=== PATIENT | male | born 1965 | race Caucasian/White ===

== ENCOUNTER 2024-11-11 06:35 | Emergency (ER) | payer BC, SELFPAY ==
[2024-11-11] VITALS (48 sets, daily range): BP systolic 135–197; BP diastolic 84–119; PULSE 54–76; RESP 11–22; TEMP 36.4; O2SAT 94–98; BMI 30.7
--- NOTE | 2024-11-11 07:19 | CRLHL7_ITS ---
For Patients: As a result of the Century Cures Act, medical imaging exams and procedure reports are released immediately into your electronic medical record. You may view this report before your referring provider. If you have questions, please contact your health care provider. Indication: Chest pain Technique: Chest 2 views Comparison: None Findings/Impression: Cardiovascular and mediastinum: Upper normal heart size with prominent aortic tortuosity. Lungs and pleural spaces: Lungs are clear. No sign of infiltrate or mass. No sign of pleural effusion. No pneumothorax. Bones and soft tissues: No significant findings. Dictated by Alfa Jessu MD @ 11/11/2024 7:55:58 AM (Electronically Signed)
[2024-11-11 07:34] LABS: Basophils Absolute Auto 0.03 K/uL (0.00-0.30); Basophils Percent Auto 0.5 % (0.0-3.0); Eosinophils Absolute Auto 0.19 K/uL (0.00-0.50); Eosinophils Percent Auto 3.3 % (0.0-7.0); Hematocrit 40.8 % (37.0-53.0); Hemoglobin* 14.2 gm/dL (13.5-17.5); Immature Granulocytes Abs Auto 0.01 K/uL (0.00-0.30); Immature Granulocytes Pct Auto 0.2 %; Lymphocytes Percent Auto 16.5 % (20-44); Mean Corpuscular HGB Conc 35 gm/dL (32-36); Mean Corpuscular Hemoglobin 33 pg (26-34); Mean Corpuscular Volume 96 fL (80-100); Monocytes Percent Auto 7.8 % (0.0-11.0); Neutrophils Absolute Auto 4.14 K/uL (1.7-7.0); Neutrophils Percent Auto 71.7 % (42.0-72.0); Platelet Count* 151 K/uL (140-440); RDW Coefficient of Variation % 11.7 % (11.5-15.5); Red Blood Count 4.27 m/uL (4.30-5.90); White Blood Count* 5.77 K/uL (4.50-11.00)
[2024-11-11 07:49] LABS: Slide Review Reflex No
[2024-11-11 07:51] LABS: Chloride* 106 mmol/L (96-114); Sodium* 139 mmol/L (135-149)
[2024-11-11 07:54] LABS: Anion Gap 8 mEq/L (7-15); Blood Urea Nitrogen* 17 mg/dL (7-30); Calcium* 8.9 mg/dL (8.4-10.6); Carbon Dioxide* 25 mmol/L (20-32); Creatinine* 0.8 mg/dL (0.5-1.5); Est. Creatinine Clearance* 109.13; Estimated Glomerular Filt Rate 102 ml/min; Glucose* 98 mg/dL (60-115)
[2024-11-11 08:12] LABS: Troponin I* 0.86 ng/mL (0.01-0.04)
--- OUTSIDE RECORDS SUMMARY | 2024-11-11 08:22 | XMS_ITS | Clinical Summary ---
Author Organization [facility] Address [address] [place] [id number] Care Team Providers Care Management Associate Name Role Phone Osman Ponce MD Primary Care Provider [phone] Codey Carpio MD Unavailable Mj Cook MD Unavailable John Cedillo Unavailable Alessia Gallegos NP Unavailable Allergies Active Allergy Reactions Criticality Noted Date Comments Pollen Extracts 06/26/2010 Medications omeprazole (PRILOSEC) 20 mg capsule Take 1 capsule by mouth once daily before a meal. 0 2 Active omega-3 fatty acids-vitamin E (FISH OIL) 1,000 mg cap 0 3 Active aspirin enteric coated (ECOTRIN) 325 mg tablet Take 1 tablet by mouth once daily with a meal. 0 5 Active rivaroxaban (XARELTO) 20 mg tabletIndication s:Paroxysmal atrial fibrillation (HC),Borderline hypertension Take 1 tablet as needed when you go into Atrial Fibrillation 10 tablet 9 Active fexofenadine (LUI) 60 mg tablet Take 1 tablet by mouth 2 times daily. 0 0 Active polyethylene glycol-electroly te (GOLYTELY) 236-22.74-6.74 -5.86 gram suspensionIndica tions:Encounter for screening colonoscopy Drink 2 liters (half the bottle) the day before colonoscopy and 2 liters (remaining prep) 6 hours prior to colonoscopy appointment. 4000 mL 5 Active amLODIPine (NORVASC) 5 mg tabletIndication s:Primary hypertension Take 1 Tablet (5 mg) by mouth once daily. 90 Tablet 3 5 Active metoprolol succinate (TOPROL XL) 50 mg sustained-releas e tabletIndication s:Paroxysmal atrial fibrillation (HC) Take 1 Tablet (50 mg) by mouth once daily. 90 Tablet 3 5 Active rosuvastatin (CRESTOR) 10 mg tabletIndication s:Hypercholester olemia Take 1 Tablet (10 mg) by mouth once daily. 90 Tablet 3 5 Active tamsulosin 0.4 mg capsuleIndicatio ns:Lower urinary tract symptoms due to benign prostatic hyperplasia Take 1 Capsule (0.4 mg) by mouth once daily after a meal. 90 Capsule 2 5 Active Active Problems Problem Noted Date Diagnosed Date Elevated PSA 07/26/2023 Overview (07/26/2023): July 2023: PSA 4.62; referring to urology. Elevated ALT measurement 06/21/2022 Overview (08/31/2022): June 2022: Minimally high ALT at 54 before starting statin. July 2022: Recheck on statin Rosuvastatin (Crestor) 10mg both AST and ALT are normal. Hypercholesterolemia 05/08/2021 Overview (06/21/2022): Mother had muscle pain and sister had liver damage from statins so we need to be careful. May 2021: starting Rosuvastatin (Crestor) 10mg. Never started it. June 2022: starting Rosuvastatin (Crestor) 10mg. Of note, before stating statin, the ALT was minimally high at 54, normal AST. Adenomatous colon polyp 05/13/2019 Overview (05/13/2019): Colonoscopy 05/2019 polyp, repeat in 5 years Primary hypertension 09/07/2015 Overview (05/05/2020): Was on beta monty for atrial fibrillation. May 2020: added amlodipine. Anticoagulation monitoring, INR range 2-3 2014 GERD (gastroesophageal reflux disease) 2 Overview (08/01/2016): Symptoms started with Aspirin for atrial fibrillation in 2010, continued omeprazole. Trial of taper to H2 Monty September 2012. July 2016: Trying taper again. Atrial fibrillation 06/26/2010 Overview (08/24/2014): Jun 2010: was taking Buhn-Jxk-Ivtzowi decongestants. Spontaneously converted to NSR, started on Aspirin and Metoprolol. Jul 2010: Holter monitor showed NSR with blunted rate, numerous PVCs. See Cardiology follow up consult note Jul 2010: Dr. Carpio. October 2013: atrial fibrillation with RVR, cardioverted at ER. Jun 2014: Atrial fibrillation, cardioversion. July 2014: Pulmonary Vein Isolation procedure done for atrial fibrillation. Pain in limb 10/18/2008 Left foot drop 07/04/2008 Overview (02/12/2011): Starting before 2005. Abnormal EMG Jun 2008: profound peroneal neropathy at the knee. Saw neurology August,. 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 Recommended repeat MRI in 5 years. Considering Tendon Transfer via [facility]. OTITIS EXTERNA 06/25/2005 LYMPHADENOPATHY 07/22/2001 OM, CHRONIC TUBOTYMPANIC SUPPURATIVE 11/25/2000 ALLERGIES 09/10/2000 Acute sinusitis, unspecified Immunizations Immunization Administration Dates Next Due AMB Influenza, IIV3 (Age >=3 years)(Flu Clinic Only) 03/21/2010,03/05/2009,03/21/2008 AMB Influenza, IIV4 PF (=>6 mos Flulaval,Fluzone Fluarix)(Flu Clinic Only) 02/21/2020 COVID-19 VACCINE SPIKEVAX (M ODERNA 50MCG/0.5ML) 12YO+ PFS 03/31/2024 Hepatitis A (Adult) 07/23/2018,01/20/2018 INFLUENZA, IIV3 PF (AGE >= 6 MO) 03/31/2024 Influenza, IIV3 (Age >=3 years) 03/12/2015,03/22,04/11/2005 Influenza, IIV4 02/25/2023,,03/11/2019,2017,03/15/2016 Influenza, IIV4 (=>6mos) MDV 03/03/2017,03/14/20 15 Influenza,CCIIV4 PRESERV FREE 03/14/2022 Pneumococcal Conj 20-valent (Prevnar 20) 07/28/2024 Td (Age >=7 Years) 05/04/2020,01/19/2002 Tdap 01/25/2010 Zoster (Shingrix-RZV, recombinant) 07/23/2018, Family History Medical History Relation Name Comments Heart Disease Father Afib, recurren t, and pacemaker Parkinsonism Father Alzheimer's disease Maternal Grandfather alzheimer Maternal Grandfather Allergies Mother Heart Disease Mother afib intermitt ently Hyperlipidemia Mother Hypertension Mother scleroderma Mother Genetic Other 1 grandfather wit h alzheimers Cancer Other 2 skin/grandparen t Hyperlipidemia Sister 2 Sist problems w liver on statins Relation Name Status Comments Father Alive Maternal Grandfather Mother of Sclerod abigail 2014 at 73 Other 1 Other 2 Sister 1 Alive Sister 2 Social History Tobacco Use Types Packs/Day Years Used Date Smoking Tobacco: Never Smokeless Tobacco: Never Tobacco Cessation:Counseling Given: Yes Alcohol Use Standard Drinks/Week Comments Yes 0 (1 standard drink = 0.6 oz pur e alcohol) 2020: weekends, 12 -15 /week. PHQ-2 Answer Date Recorded PHQ-2 TOTAL SCORE 0 07/28/2024 Social Connections Answer Date Recorded Do you often feel lonely or isolated from those around you? 0 07/27/2024 Financial Resource Strain Answer Date R ecorded Difficulty of Paying Living Expenses 3 07/27/2024 Difficulty of Paying Living Expenses Not on file 07/27/2024 Food Insecurity Answer Date Recorded Do you worry your food will run out before you are able to buy more? 1 07/27/2024 Transportation Needs Answer Date Record ed Does lack of transportation keep you from medica l appointments? 1 07/27/2024 Does lack of transportation keep you from work, meetings or getting things that you need? 1 07/27/2024 Housing Stability Answer Date Recorded What is your housing situation today? 1 07/27/2024 Utilities Answer Date Recorded Do you have trouble paying f or utilities (for example, heat, electricity, water, phone)? 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 Gender Identity Not on file Sexual Orientation Not on file Occupation Industry Job Start Date Job End Date Not on file Not on file Not on file Not on file Obstetrics History Last Filed Vital Signs Vital Sign Reading Time Taken Comments Blood Pressure 123/83 07/28/2024 9:06 AM BAND MACHINE OPERATOR Pulse 67 07/28/2024 9:06 AM BAND MACHINE OPERATOR Temperature 36.6 C (97.8 F) 04/02/2015 8:09 AM BAND MACHINE OPERATOR Respiratory Rate 14 04/04/2019 7:57 AM BAND MACHINE OPERATOR Oxygen Saturation 95% 07/28/2024 9:06 AM BAND MACHINE OPERATOR Inhaled Oxygen Concentration - - Weight 101.7 kg (224 lb 4.8 oz) 07/28/2024 9:06 AM BAND MACHINE OPERATOR Height 182.1 cm (5' 11.69) 07/28/2024 9:[address] Body Mass Index 30.68 07/28/2024 9:06 AM BAND MACHINE OPERATOR Plan of Treatment Scheduled Procedures Name Priority Associated Diagnoses Date/Ti me SURGICAL PROCEDURE (TYPE PROCEDURE DESCRIPTION BELOW) Encounter for screening colonoscopy Health Maintenance Due Date Last Done Comments Hepatitis B series for 19+ (1 of 3 - 19+ 3-dose series) 1984 BMI (ht and wt on same day) for age 18+ 07/28/2025 07/28/2024, 07/24/2023, 05/02/2021, Additional history exists Depression screening for age 12+ 07/28/2025 07/28/2024, 07/26/2023, 07/24/2023, Additional history exists Lipids for age 45-75 07/28/2029 07/28/2024, 07/24/2023, 08/29/2022, Additional history exists Tetanus booster 05/04/2030 05/04/2020, 12/31, 01/19/2002 HIV for age 15-65 07/07/2031 Postponed from 1980 (Patient discretion) Colonoscopy through age 75 08/03/203108/02, 05/11/2019, 05/11/2019 Tdap Completed 01/25/2010 Hepatitis C screening for age 18-79 Completed 11/11/2013 Zoster (shingles) series for age 50+ Completed 07/23/2018, 01/20/2018 COVID-19 vaccine series Completed 03/31/20 24, 03/14/2022, 04/03/2021, Additional history exists Influenza Vaccine Completed 03/31/2024, , 03/14/2022, Additional history exists Pneumococcal series for age 50+ Completed 07/28/2024 Procedures Procedure Name Priority Date/Time Associated Diagnosis Comments SCAN-COLONOSCOPY 08/02/2024 12:0 0 AM BAND MACHINE OPERATOR LIPID PANEL W REFLEX MEASURED LDL Routine 07/28/2024 10:26 AM BAND MACHINE OPERATOR Hypercholesterolemi a ANTI HCV Routine 11/11/2013 1:37 PM CDT Need for hepatitis C screening test from Last 3 Months or Most Recently Relevant to Health Maintenance Results * SCAN-COLONOSCOPY (08/02/2024 12:00 AM BAND MACHINE OPERATOR) us Scanner OTHER Final Result * LIPID PANEL W REFLEX MEASURED LDL (07/28/2024 10:26 AM BAND MACHINE OPERATOR) CHOLESTEROL, TOTAL 155 <200 mg/dL [facility] HDL CHOLESTEROL 53 > OR = 40 mg/dL [facility] TRIGLYCERIDES 81 <150 mg/dL [facility] LDL-CHOLESTEROL 85 mg/dL (calc) [facility] Comment: Reference range: <100 Desirable range <100 mg/dL for primary prevention; <70 mg/dL for patients with CHD or diabetic patients with > or = 2 CHD risk factors. LDL-C is now calculated using the Loan calculation, which is a validated novel method providing better accuracy than the Friedewald equation in the estimation of LDL-C. Mino CORTES et al. DYLAN. 2013;310(19): 1498-8231 (http://education.Bevii.MedeFile International/faq/FVR965) CHOL/HDLC RATIO 2.9 <5.0 (calc) [facility] NON HDL CHOLESTEROL 102 <130 mg/dL (calc) [facility] Comment: For patients with diabetes plus 1 major ASCVD risk factor, treating to a non-HDL-C goal of <100 mg/dL (LDL-C of <70 mg/dL) is considered a therapeutic option. Blood BLOOD SPECIMEN / Unknown 07/28/2024 10:26 AM BAND MACHINE OPERATOR 07/28/2024 10:28 AM BAND MACHINE OPERATOR Osman Ponce MD CHEMISTRY Final Res ult Performing Organization Address [facility]/ZIP Co de Phone Number [employer] [facility] [address] [place] [address], [employer] [facility] [address] [place] [address] * ANTI HCV [78922.2] (11/11/2013 1:37 PM CDT) HEPATITIS C ANTIBODY Non-Reacti ve Non-Reacti ve 11/11/2013 7:52 PM CDT [facility] Blood specimen (specimen) BLOOD SPECIMEN / Unknown Venipuncture / Unknown 11/11/2013 1:37 PM CDT 11/11/2013 1:37 PM CDT Narrative [facility] [employer] [facility] - 11/11/2013 7:52 PM CDT Antibodies to HCV not detected; does not exclude the possibility of exposure to HCV. Osman Ponce MD SEND OUTS Final Res ult [facility] [address] [place] [address], [place] from Last 3 Months or Most Recently Relevant to Health Maintenance Insurance [facility] Advance Directives * Full Code (Latest Code Status on File) Date Activated Date Inactivated Comments 08/21/2014 6:03 AM 08/22/2014 12:17 PM * Full Code Date Activated Date Inactivated Comments 07/18/2014 7:25 AM 07/18/2014 12:36 PM * Full Code Date Activated Date Inactivated Comments 06/26/2010 2:49 PM 06/27/2010 5:03 PM Care Teams Management Associate Relationship Specialty Start Date End Date Osman Ponce MD PCP - General 08/10/08 Codey Carpio MD Consulting Physician Cardiovascular Disease 12/08/13 Mj Cook MD [address] [place] [address] Cardiology - EP Cardiovascular Disease 08/09/14 John Cedillo [address] [address] Dermatology Dermatology 03/29/19 Alessia Gallegos NP [address] [address] Nurse Practitioner Cardiology - Electrophysiology 04/23/20
--- NOTE | 2024-11-11 08:30 | ED.CHESTPAIN ---
HPI - Chest Pain General Chief Complaint: Chest Pain Stated Complaint: Chest pain Time Seen by Provider: 11/11/24 07:35 History of Present Illness HPI narrative: Patient is a 59-year-old gentleman with a distant history of cardiac ablation for atrial fibrillation who has hypertension. He woke approximately 3 hours ago with substernal chest pain. Patient had no nausea vomiting diaphoresis no fevers no chills. She got up and took his normal 325 of aspirin as well as his metoprolol. He went back to bed was not able to sleep. Comes in this morning were EKG shows normal sinus rhythm without acute ST or T-wave changes. His troponin has come back as 0.86. Patient is asymptomatic and feeling well. Related Data Allergies Allergy/AdvReac Type Severity Reaction Status Date / Time No Known Drug Allergies Allergy Verified 11/11/24 06:44 Review of Systems Status of ROS Reports: 10 or more systems reviewed and unremarkable except as noted in History and below Exam Narrative Exam Narrative: EXAM GENERAL: Patient appears comfortable and well. EYES: No scleral icterus. LYMPH: No supraclavicular or cervical lymphadenopathy. SKIN: Visible skin seen during exam normal or with benign process only. EXT: No dependent lower extremity pedal edema. HEART: Regular rate and rhythm with no murmurs, rubs, or gallops. LUNGS: Clear to auscultation bilaterally with no crackles or wheezes. ABD: Soft, non tender, non distended. PSYCH: Good eye contact, speech is not pressured. Const Vital Signs, click to edit/add: Vital Signs - 24 hr 11/11/24 06:41 11/11/24 07:25 11/11/24 07:26 Temperature 97.5 F L Pulse Rate 58 L 56 L Pulse Rate [Right Pulse Oximeter] 76 Respiratory Rate 18 14 12 Blood Pressure 146/94 H Blood Pressure [Right Upper Arm] 177/84 H Pulse Oximetry 97 95 95 Oxygen Delivery Method Room Air 11/11/24 07:29 11/11/24 07:30 11/11/24 07:32 Temperature Pulse Rate 60 61 Pulse Rate [Right Pulse Oximeter] Respiratory Rate 17 16 Blood Pressure 135/90 H Blood Pressure [Right Upper Arm] Pulse Oximetry 94 94 94 Oxygen Delivery Method 11/11/24 07:48 11/11/24 08:00 11/11/24 08:02 Temperature Pulse Rate 62 56 L 57 L Pulse Rate [Right Pulse Oximeter] Respiratory Rate Blood Pressure 149/91 H Blood Pressure [Right Upper Arm] Pulse Oximetry 94 96 94 Oxygen Delivery Method 11/11/24 08:03 11/11/24 08:15 11/11/24 08:45 Temperature Pulse Rate 58 L 54 L 67 Pulse Rate [Right Pulse Oximeter] Respiratory Rate 14 12 13 Blood Pressure Blood Pressure [Right Upper Arm] Pulse Oximetry 94 96 98 Oxygen Delivery Method 11/11/24 09:00 11/11/24 09:03 11/11/24 09:05 Temperature Pulse Rate 63 67 65 Pulse Rate [Right Pulse Oximeter] Respiratory Rate 11 L 14 Blood Pressure 197/119 H 164/111 H Blood Pressure [Right Upper Arm] Pulse Oximetry 96 96 95 Oxygen Delivery Method Course Course ED Course: Patient seen and examined. Troponin is elevated. I have called and spoken to Cardiology at [facility]. Patient will be started on heparin drip and will be transferred for heart catheterization. No further intervention at this time. Vital Signs Vital signs: Initial Vital Signs Respiratory Effort Normal 11/11/24 06:38 Respiratory Depth Normal 11/11/24 06:38 Respiratory Pattern Normal 11/11/24 06:38 Vital Signs Temperature 97.5 F L 11/11/24 06:41 Pulse Rate 76 11/11/24 06:41 Respiratory Rate 18 11/11/24 06:41 Blood Pressure 177/84 H 11/11/24 06:41 Pulse Oximetry 97 11/11/24 06:41 Oxygen Delivery Method Room Air 11/11/24 06:41 Temperature 97.5 F L 11/11/24 06:41 Pulse Rate 65 11/11/24 09:05 Respiratory Rate 14 11/11/24 09:05 Blood Pressure 164/111 H 11/11/24 09:05 Pulse Oximetry 95 11/11/24 09:05 Oxygen Delivery Method Room Air 11/11/24 06:41 Medications Administered Medications: Generic Name Dose Route Start Last Admin Trade Name Freq PRN Reason Stop Dose Admin Heparin Sodium/Dextrose 25,000 unit in 500 mls @ 0 mls/hr 11/11/24 08:30 11/11/24 08:47 Heparin IV 1,000 unit/hr .Q0M YARIEL 20 mls/hr Protocol Administration Per Protocol Discontinued Medications Generic Name Dose Route Start Last Admin Trade Name Freq PRN Reason Stop Dose Admin Heparin Sodium (Porcine) 4,000 unit 11/11/24 08:29 11/11/24 08:46 Heparin 5,000 Unit/0.5 Ml Inj IVP 11/11/24 08:30 4,000 unit ONCE ONE Administration MDM - Chest Pain MDM Narrative Medical decision making narrative: Patient presents with with a 3 hour distant history of chest pain with no pain currently. EKG shows normal sinus rhythm. His troponin is elevated. The remainder of his workup was unremarkable. Patient has taken aspirin beta-solitario this morning. He is asymptomatic. Pulse is 65. Spoke with Cardiology at [facility] and they did recommend heparin drip which was started. Patient is transferred to [facility] with a bed delay. Will continue provide supportive care in the interim. Lab Data Labs: Lab Results 11/11/24 11/11/24 11/11/24 Range/Units 07:25 07:25 07:25 WBC 5.77 Cancelled (4.50-11.00) K/uL RBC 4.27 L Cancelled (4.30-5.90) m/uL Hgb 14.2 (13.5-17.5) gm/dL Hct (37.0-53.0) % MCV (80-100) fL MCH (26-34) pg MCHC (32-36) gm/dL RDW Coeff of Riya (11.5-15.5) % Plt Count (140-440) K/uL Neut % (Auto) (42.0-72.0) % Lymph % (Auto) (20-44) % [place] % (Auto) (0.0-11.0) % Eos % (Auto) (0.0-7.0) % Baso % (Auto) (0.0-3.0) % Neut # (Auto) (1.7-7.0) K/uL Lymph # (Auto) (0.90-2.90) K/uL [place] # (Auto) (0.00-0.90) K/UL Eos # (Auto) (0.00-0.50) K/uL Baso # (Auto) (0.00-0.30) K/uL Abs Immat Gran (auto) (0.00-0.30) K/uL Imm/Tot Granulo (auto) % INR (0.91-1.10) APTT (23-33) Seconds D-Dimer Quant (PE/DVT) (0.00-0.50) ug/ml Sodium (135-149) mmol/L Potassium (3.6-5.1) mmol/L Chloride (96-114) mmol/L Carbon Dioxide (20-32) mmol/L Anion Gap (7-15) mEq/L BUN (7-30) mg/dL Creatinine (0.5-1.5) mg/dL Estimated Creat Clear Estimated GFR ml/min Glucose (60-115) mg/dL Calcium (8.4-10.6) mg/dL Troponin I (0.01-0.04) ng/mL 11/11/24 11/11/24 11/11/24 Range/Units 07:25 07:25 07:25 WBC (4.50-11.00) K/uL RBC (4.30-5.90) m/uL Hgb Cancelled (13.5-17.5) gm/dL Hct 40.8 Cancelled (37.0-53.0) % MCV 96 Cancelled (80-100) fL MCH 33 (26-34) pg MCHC (32-36) gm/dL RDW Coeff of Riya (11.5-15.5) % Plt Count (140-440) K/uL Neut % (Auto) (42.0-72.0) % Lymph % (Auto) (20-44) % [place] % (Auto) (0.0-11.0) % Eos % (Auto) (0.0-7.0) % Baso % (Auto) (0.0-3.0) % Neut # (Auto) (1.7-7.0) K/uL Lymph # (Auto) (0.90-2.90) K/uL [place] # (Auto) (0.00-0.90) K/UL Eos # (Auto) (0.00-0.50) K/uL Baso # (Auto) (0.00-0.30) K/uL Abs Immat Gran (auto) (0.00-0.30) K/uL Imm/Tot Granulo (auto) % INR (0.91-1.10) APTT (23-33) Seconds D-Dimer Quant (PE/DVT) (0.00-0.50) ug/ml Sodium (135-149) mmol/L Potassium (3.6-5.1) mmol/L Chloride (96-114) mmol/L Carbon Dioxide (20-32) mmol/L Anion Gap (7-15) mEq/L BUN (7-30) mg/dL Creatinine (0.5-1.5) mg/dL Estimated Creat Clear Estimated GFR ml/min Glucose (60-115) mg/dL Calcium (8.4-10.6) mg/dL Troponin I (0.01-0.04) ng/mL 11/11/24 11/11/24 11/11/24 Range/Units 07:25 07:25 07:25 WBC (4.50-11.00) K/uL RBC (4.30-5.90) m/uL Hgb (13.5-17.5) gm/dL Hct (37.0-53.0) % MCV (80-100) fL MCH Cancelled (26-34) pg MCHC 35 Cancelled (32-36) gm/dL RDW Coeff of Riya 11.7 (11.5-15.5) % Plt Count 151 Cancelled (140-440) K/uL Neut % (Auto) 71.7 (42.0-72.0) % Lymph % (Auto) 16.5 L (20-44) % [place] % (Auto) 7.8 (0.0-11.0) % Eos % (Auto) 3.3 (0.0-7.0) % Baso % (Auto) 0.5 (0.0-3.0) % Neut # (Auto) 4.14 (1.7-7.0) K/uL Lymph # (Auto) 1.00 (0.90-2.90) K/uL [place] # (Auto) 0.50 (0.00-0.90) K/UL Eos # (Auto) 0.19 (0.00-0.50) K/uL Baso # (Auto) 0.03 (0.00-0.30) K/uL Abs Immat Gran (auto) 0.01 (0.00-0.30) K/uL Imm/Tot Granulo (auto) 0.2 % INR 0.97 (0.91-1.10) APTT 36 H (23-33) Seconds D-Dimer Quant (PE/DVT) 0.20 (0.00-0.50) ug/ml Sodium 139 (135-149) mmol/L Potassium 4.0 (3.6-5.1) mmol/L Chloride 106 (96-114) mmol/L Carbon Dioxide 25 (20-32) mmol/L Anion Gap 8 (7-15) mEq/L BUN 17 (7-30) mg/dL Creatinine 0.8 (0.5-1.5) mg/dL Estimated Creat Clear 109.13 Estimated GFR 102 ml/min Glucose 98 (60-115) mg/dL Calcium 8.9 (8.4-10.6) mg/dL Troponin I 0.86 H* (0.01-0.04) ng/mL Discharge Plan Discharge Clinical Impression: Non-ST elevated myocardial infarction (non-STEMI) Patient Disposition: [facility] Condition: Stable Instructions: Heart Healthy Diet (ED) Activity Level: Other Discharge Diet: Other Stand Alone Forms: [facility] Info Instructions
[2024-11-11] MEDS: HEPARIN 5,000 UNIT/0.5 ML INJ 4000 UNIT IVP (08:46)
[2024-11-11] MEDS: HEPARIN 25,000 UNIT/500 ML BAG 20 UNIT IV (08:47)
[2024-11-11 09:13] LABS: INR 0.97 (0.91-1.10); Partial Thromboplastin Time* 36 Seconds (23-33); Prothrombin Time 13.7 Seconds
== END 2024-11-11 14:38 | disposition short-term general hospital (02) ==
PROVIDERS: Family Medicine; Emergency Provider Internal Medicine; PCP Family Medicine
DX: I21.4 Non-ST elevation (NSTEMI) myocardial infarction (principal); I10 Essential (primary) hypertension
CPT/HCPCS: 36415; 71046; 80048; 84484; 85025; 85027; 85379; 85610; 85730; 93005; 94761; 99284; 99285; J1644

== ENCOUNTER 2024-11-11 14:25 | Outpatient (CLI) | payer BC, SELFPAY ==
--- OUTSIDE RECORDS SUMMARY | 2024-11-18 00:32 | XMS_ITS | Clinical Summary ---
Author Organization [facility] Address [address] [place] [address] Care Team Providers Care Search Engine Optimization Analyst Name Role Phone Osman Ponce MD Primary Care Provider [phone] Codey Carpio MD Unavailable Mj Cook MD Unavailable John Cedillo Unavailable Alessia Gallegos NP Unavailable Allergies Active Allergy Reactions Criticality Noted Date Comments Pollen Extracts 06/26/2010 Medications amLODIPine (NORVASC) 5 mg tabletIndications :Primary hypertension Take 1 Tablet (5 mg) by mouth once daily. 90 Tablet 3 025 Active metoprolol succinate (TOPROL XL) 50 mg sustained-release tabletIndications :Paroxysmal atrial fibrillation (HC) Take 1 Tablet (50 mg) by mouth once daily. 90 Tablet 3 025 Active tamsulosin 0.4 mg capsuleIndication s:Lower urinary tract symptoms due to benign prostatic hyperplasia Take 1 Capsule (0.4 mg) by mouth once daily after a meal. 90 Capsule 2 025 Active aspirin chewable 81 mg chewable tabletIndications :ASCVD (arteriosclerotic cardiovascular disease) Chew 1 Tablet (81 mg) by mouth once daily in the morning. 025 Active ticagrelor 90 mg tabletIndications :ASCVD (arteriosclerotic cardiovascular disease) Take 1 Tablet (90 mg) by mouth two times daily. Take one year uninterrupted. Do not stop unless directed by Cardiology. 60 Tablet 11 5 10:14 AM CDT 025 Active losartan 25 mg tabletIndications :ASCVD (arteriosclerotic cardiovascular disease) Take 1 Tablet (25 mg) by mouth once daily. 30 Tablet 1 5 10:14 AM CDT 025 Active nitroglycerin 0.4 mg sublingual tabletIndications :ASCVD (arteriosclerotic cardiovascular disease) Place 1 Tablet (0.4 mg) under the tongue every 5 minutes if needed for Chest pain 1st choice. Up to 3 tablets in 15 minutes. 25 Tablet 2 5 10:14 AM CDT 025 Active rosuvastatin 20 mg tabletIndications :ASCVD (arteriosclerotic cardiovascular disease) Take 1 Tablet (20 mg) by mouth once daily. 30 Tablet 1 5 10:14 AM CDT 025 Active omeprazole (PRILOSEC) 20 mg capsule Take 1 capsule by mouth once daily before a meal. 0 012 2024 Discontinued (Pharmacist change per medication history (E-cancel not sent)) omega-3 fatty acids-vitamin E (FISH OIL) 1,000 mg cap 0 013 2024 Discontinued (Pharmacist change per medication history (E-cancel not sent)) aspirin enteric coated (ECOTRIN) 325 mg tablet Take 1 tablet by mouth once daily with a meal. 0 015 2024 Discontinued (Pharmacist change per medication history (E-cancel not sent)) rivaroxaban (XARELTO) 20 mg tabletIndications :Paroxysmal atrial fibrillation (HC),Borderline hypertension Take 1 tablet as needed when you go into Atrial Fibrillation 10 tablet 019 2024 Discontinued (Pharmacist change per medication history (E-cancel not sent)) fexofenadine (LUI) 60 mg tablet Take 1 tablet by mouth 2 times daily. 0 020 2024 Discontinued (Pharmacist change per medication history (E-cancel not sent)) polyethylene glycol-electrolyt e (GOLYTELY) 236-22.74-6.74 -5.86 gram suspensionIndicat ions:Encounter for screening colonoscopy Drink 2 liters (half the bottle) the day before colonoscopy and 2 liters (remaining prep) 6 hours prior to colonoscopy appointment. 4000 mL 025 2024 Discontinued (Pharmacist change per medication history (E-cancel not sent)) rosuvastatin (CRESTOR) 10 mg tabletIndications :Hypercholesterol emia Take 1 Tablet (10 mg) by mouth once daily. 90 Tablet 3 025 2024 Discontinued (*IP Discontinued ) aspirin 325 mg tablet Take 325 mg by mouth once daily. 2024 Discontinued (*IP Discontinued ) Active Problems Problem Noted Date Diagnosed Date NSTEMI (non-ST elevated myocardial infarction) 0 11/14/2024 Overview (11/14/2024): S/P drug eluting stent to diagonal 11/13/24 Elevated PSA 07/26/2023 Overview (07/26/2023): July 2023: [...] 06/26/2010 Overview (08/24/2014): Jun 2010: was taking Mudn-Qqk-Nvorhjk decongestants. Spontaneously converted to NSR, started on [...] the knee. Saw neurology August,. 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 Recommended repeat MRI in 5 years. Considering Tendon Transfer via [place]. OTITIS EXTERNA 06/25/2005 LYMPHADENOPATHY 07/22/2001 OM, CHRONIC TUBOTYMPANIC SUPPURATIVE 11/25/2000 ALLERGIES 09/10/2000 Acute sinusitis, unspecified Encounters Date Type Department Care Team Description 11/17/2024 12:35 PM CDT Office Visit [facility] [address] [facility] [place] [address] Osman Ponce MD Hospital F/U (Post Op - ANW 11/14/2024 discharged/NSTEMI /Review Angiogram) 11/17/2024 Travel 11/15/2024 Patient Outreach [facility] [address] [place] [address] Kyra Alvarez RN Primary RN Care Management; Hospital F/U (LACE 27) 11/13/2024 Travel 11/11/2024 3:33 PM CDT - 11/14/2024 1:05 PM CDT Hospital Encounter [facility] [address] [place] [address] [facility] [place], MD Efrain Wong, MD Danie Rios Hani, MBBS ASCVD (arteriosclerotic cardiovascular disease) (Primary Dx); Cardiovascular symptoms Discharge Disposition: Home Self Care 11/11/2024 Travel 11/11/2024 Telephone [facility] [address] [facility] [address] [place] [address] Edmundo Zhao MD from Last 3 Months Immunizations Immunization Administration Dates Next Due AMB [...] Alive Maternal Grandfather Mother of Sclerod abigail 2015 at 73 Other 1 Other 2 Sister [...] or isolated from those around you? 0 11/11/2024 Financial Resource Strain Answer Date R ecorded Difficulty of Paying Living Expenses 3 07/27/2024 Difficulty of Paying Living Expenses Not on file 07/27/2024 Food Insecurity Answer Date Recorded Do you worry your food will run out before you are able to buy more? 1 11/11/2024 Transportation Needs Answer Date Record ed Does lack of transportation keep you from medica l appointments? 1 11/11/2024 Does lack of transportation keep you from work, meetings or getting things that you need? 1 11/11/2024 Housing Stability Answer Date Recorded What is your housing situation today? 1 11/11/2024 Interpersonal Safety Answer Date Record ed Are you being hit, kicked, p ushed or yelled at (see row info)? No 11/11/2024 Interpersonal Safety Abuse 12 - 18 Not on file 11/11/2024 Interpersonal Safety Ambulatory Vulnerability No t on file 11/11/2024 Utilities Answer Date Recorded Do you have trouble paying f or utilities (for example, heat, electricity, water, phone)? 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 Gender Identity Not on file Sexual Orientation Not on file Occupation Industry Job Start Date Job End Date Not on file Not on file Not on file Not on file Obstetrics History Last Filed Vital Signs Vital Sign Reading Time Taken Comments Blood Pressure 108/72 11/17/2024 12:33 PM CDT Pulse 64 11/17/2024 12:33 PM CDT Temperature 36.9 C (98.4 F) 11/14/2024 11:41 AM CDT Respiratory Rate 20 11/13/2024 9:25 PM CDT Oxygen Saturation 97% 11/17/2024 12: 33 PM CDT Inhaled Oxygen Concentration - - Weight 100.6 kg (221 lb 12.8 oz) 2024 12:33 PM CDT Height 180.7 cm (5' 11.14) 11/17/2024 12:33 PM CDT Body Mass Index 30.81 11/17/2024 12:33 PM CDT Plan of Treatment Upcoming Encounters Date Type Department Care Team (Late st Contact Info) Description 12/26/2024 8:00 AM CDT Orders Only [facility] [address] [address] [place], [place] [id number] Lab, [facility] 12/27/2024 11:00 AM CDT [facility] [address] [facility] [address] [place] [address] [place] [address] [facility] [address] [place] [address] Scheduled Procedures Name Priority Associated Diagnoses Date/Ti me SURGICAL PROCEDURE (TYPE PROCEDURE DESCRIPTION BELOW) Encounter for screening colonoscopy Health Maintenance Due Date Last Done Comments Hepatitis B series for 19+ (1 of 3 - 19+ 3-dose series) 1984 Depression screening for age 12+ 07/28/2025 07/28/2024, 07/26/2023, 07/24/2023, Additional history exists BMI (ht and wt on same day) for age 18+ 11/17/2025 11/17/2024, 07/28/2024, 07/24/2023, Additional history exists Lipids for age 45-75 11/11/2029 11/11/2024, 07/28/2024, 07/24/2023, Additional history exists Tetanus booster 05/04/2030 05/04/2020, [...] Procedure Name Priority Date/Time Associated Diagnosis Comments SCAN CORRESP-LABORATORY RESULTS 11/14/2024 1:06 PM CDT SCAN CORRESP-IMAGING 11/14/2024 1:06 PM CDT SCAN CORRESP-EKG RESULTS 11/14/2024 12:46 PM CDT SCAN-CARDIAC STRIP 11/14/2024 7: 40 AM CDT POTASSIUM Early AM 11/14/2024 6:15 AM CDT MAGNESIUM Early AM 11/14/2024 6:15 AM CDT SCAN-CARDIAC STRIP 11/13/2024 8: 11 PM CDT [facility] ACTIVATED CLOTTING TM CV Timed 11/13/2024 10:46 AM CDT [facility] ACTIVATED CLOTTING TM CV Timed 11/13/2024 10:32 AM CDT CVL CORONARY ANGIOGRAM POSS PCI Routine 11/13/2024 10:25 AM CDT Cardiovascular symptoms SCAN-CARDIAC STRIP 11/13/2024 7: 37 AM CDT SCAN-CARDIAC STRIP 11/13/2024 7: 37 AM CDT BASIC METABOLIC PANEL KERRY 11/13/2024 5:44 AM CDT APTT Timed 11/13/2024 5:44 AM CDT POTASSIUM Early AM 11/13/2024 5:44 AM CDT MAGNESIUM Early AM 11/13/2024 5:44 AM CDT HEMOGLOBIN Early AM 11/13/2024 5:44 AM CDT PLATELET COUNT Early AM 11/13/2024 5:44 AM CDT APTT Timed 11/13/2024 12:18 AM CDT SCAN-CARDIAC STRIP 11/12/2024 10 :04 PM CDT SCAN-CARDIAC STRIP 11/12/2024 5: 38 PM CDT APTT Timed 11/12/2024 2:28 PM CDT ECHO TTE COMPLETE W CONTRAST Routine 11/12/2024 1:37 PM CDT POTASSIUM Today 11/12/2024 11:16 AM CDT MAGNESIUM Today 11/12/2024 11:16 AM CDT EKG 12 LEAD Early AM 11/12/2024 8:38 AM CDT APTT Timed 11/12/2024 6:15 AM CDT HEMOGLOBIN Early AM 11/12/2024 6:15 AM CDT PLATELET COUNT Early AM 11/12/2024 6:15 AM CDT APTT Today 11/11/2024 10:49 PM CDT TROPONIN T (HS) ONE TIME Timed 11/11/2024 9:52 PM CDT SCAN-CARDIAC STRIP 11/11/2024 8: 30 PM CDT EKG 12 LEAD KERRY 11/11/2024 7:52 PM CDT HEMOGLOBIN A1C KERRY 11/11/2024 7:34 PM CDT LIPID PANEL KERRY 11/11/2024 7:34 PM CDT TROPONIN T (HS) ACUTE W/2HR REFLEX STAT 11/11/2024 7:34 PM CDT HEMOGLOBIN KERRY 11/11/2024 7:34 PM CDT PLATELET COUNT KERRY 11/11/2024 7:34 PM CDT PROTIME-INR KERRY 11/11/2024 7:34 PM CDT SCAN-CARDIAC STRIP 11/11/2024 4: 29 PM CDT SCAN-COLONOSCOPY 08/02/2024 12:0 0 AM WOOD GRINDER ANTI HCV Routine 11/11/2013 1:37 PM CDT Need for hepatitis C screening test from Last 3 Months or Most Recently Relevant to Health Maintenance Results * SCAN CORRESP-LABORATORY RESULTS (11/14/2024 1:06 PM CDT) Narrative 11/14/2024 1:06 PM CDT Ordered by an unspecified provider. us Other Clinical Staff OTHER Final Resul t * SCAN CORRESP-IMAGING (11/14/2024 1:06 PM CDT) Anatomical Region Laterality Modality Other Narrative 11/14/2024 1:06 PM CDT Ordered by an unspecified provider. us Other Clinical Staff OTHER Final Resul t * SCAN CORRESP-EKG RESULTS (11/14/2024 12:46 PM CDT) Narrative 11/14/2024 12:46 PM CDT Ordered by an unspecified provider. us Other Clinical Staff OTHER Final Resul t * SCAN-CARDIAC STRIP (11/14/2024 7:40 AM CDT) us Scanner OTHER Final Result * POTASSIUM (11/14/2024 6:15 AM CDT) Only the most recent of3 resultswithin the time period is included. POTASSIUM 4.1 3.5 - 5.1 mmol/L 11/14/2024 7:26 AM CDT [facility] Blood BLOOD SPECIMEN / Unknown Butterfly / Unknown 11/14/2024 6:15 AM CDT 11/14/2024 6:44 AM CDT Johanny BARKER CHEMISTRY Final Result Performing Organization Address City/[facility]/ZIP Co de Phone Number [facility] [address] [place] [address], * MAGNESIUM (11/14/2024 6:15 AM CDT) Only the most recent of3 resultswithin the time period is included. Pathologist [facility] MAGNESIUM 2.1 1.6 - 2.6 mg/dL 11/14/2024 7:26 AM CDT [facility] Blood BLOOD SPECIMEN / Unknown Butterfly / Unknown 11/14/2024 6:15 AM CDT 11/14/2024 6:44 AM CDT Jessica Cross MD CHEMISTRY Final Result Performing Organization Address City/[facility] Co de Phone Number [facility] [address] [place] [address], * SCAN-CARDIAC STRIP (11/13/2024 8:11 PM CDT) Scanner OTHER Final Result * (ABNORMAL) ACTIVATED CLOTTING TIME [id number] ACT (11/13/2024 10:46 AM CDT) Only the most recent of2 resultswithin the time period is included. Pathologist [facility] ACTIVATED CLOTTING TIME, POCT 243(H) 74 - 125 sec 11/14/2024 8:30 PM CDT [facility] Blood BLOOD SPECIMEN / Unknown 11/13/2024 10:46 AM CDT 11/14/2024 8:29 PM CDT us [facility] HEMATOLOGY Final Re sult [facility] [address] [place] [address], * CVL CORONARY ANGIOGRAM POSS PCI (11/13/2024 10:25 AM CDT) Anatomical Region Laterality Modality Other 11/13/2024 10:2 5 AM CDT Narrative Procedure Note Manas Logan MD - 11/13/2024 3:25 PM CDT DATE OF SERVICE: 11/13/2024 PREOPERATIVE DIAGNOSES: 1. Acute non-ST elevation AR. 2. Prior history of atrial fibrillation. PROCEDURES: 1. Coronary arteriography. 2. LAD IFR. 3. Left circumflex IFR. 4. LAD diagonal drug-eluting stent. FINDINGS: The left main coronary artery is normal. Left anterior descending has a 30% proximal lesion with a negative IFR.This occurs at distal to the origin of the LAD diagonal, which has a long95% obstruction with clear chronic features. This was treated with a 2.25x 30 zotarolimus-eluting stent deployed at 24 atmospheres leading to anexcellent result. Left circumflex is nondominant and yzuo-tl-mzhelbswps diseased. Right coronary artery is dominant. The PDA has [id number]. SUMMARY OF FINDINGS: 1. Acute non-ST elevation AR. 2. LAD diagonal culprit. 3. Successful LAD diagonal drug-eluting stent. 4. Dual antiplatelet therapy for 12 months. 5. Successful Perclose groin closure. Results are automatically released to your [employer]ns[employer] (GetGlue) accountonce available, in compliance with federal regulations. This means thatyou may see your results before your provider has had a chance to reviewthem. Please allow 2-3 business days for your provider to comment on theresults. MANAS LOGAN MD MRM/SERGIO/MICHAEL VJID: [id number] TJID: [id number] us Provider Referring CV IMAGING Edited Result - Final * SCAN-CARDIAC STRIP (11/13/2024 7:37 AM CDT) us Scanner OTHER Final Result * SCAN-CARDIAC STRIP (11/13/2024 7:37 AM CDT) us Scanner OTHER Final Result * (ABNORMAL) PLATELET COUNT (11/13/2024 5:44 AM CDT) Only the most recent of3 resultswithin the time period is included. PLATELET COUNT 148 140 - 440 thou/cu mm 11/13/2024 6:13 AM CDT [facility] MPV 12.5(H) 6.5 - 11.0 fL 11/13/2024 6:13 AM CDT [facility] Blood BLOOD SPECIMEN / Unknown Venipuncture / Unknown 11/13/2024 5:44 AM CDT 11/13/2024 6:09 AM CDT Narrative [facility] - 11/13/2024 6:13 AM CDT Every morning while on IV heparin. Necessary every morning while on IV heparin. Tong Paz MD HEMATOLOGY Final Re sult [facility] [address] [place] [address], * HEMOGLOBIN (11/13/2024 5:44 AM CDT) Only the most recent of3 resultswithin the time period is included. HEMOGLOBIN 14.2 13.5 - 17.5 g/dL 11/13/2024 6:13 AM CDT [facility] MCV 95 80 - 100 fL 11/13/2024 6:13 AM CDT [facility] Blood BLOOD SPECIMEN / Unknown Venipuncture / Unknown 11/13/2024 5:44 AM CDT 11/13/2024 6:09 AM CDT Narrative [facility] - 11/13/2024 6:13 AM CDT Every morning while on IV heparin. Necessary every morning while on IV heparin. us Tong Paz MD HEMATOLOGY Final Re sult Performing Organization Address [facility]/ZIP Co de Phone Number [facility] [address] [place] [address], * (ABNORMAL) APTT (11/13/2024 5:44 AM CDT) Only the most recent of5 resultswithin the time period is included. APTT 72(H) 25 - 36 sec 11/13/2024 6:33 AM CDT [facility] Blood BLOOD SPECIMEN / Unknown Venipuncture / Unknown 11/13/2024 5:44 AM CDT 11/13/2024 6:09 AM CDT Narrative [facility] - 11/13/2024 6:33 AM CDT Therapeutic Range: 59-89 seconds us Johanny BARKER HEMATOLOGY Final Result Performing Organization Address [facility] Co de Phone Number [facility] [address] [place] [address], * (ABNORMAL) BASIC METABOLIC PANEL (11/13/2024 5:44 AM CDT) SODIUM 142 136 - 145 mmol/L 11/13/2024 7:23 AM CDT [facility] POTASSIUM 4.3 3.5 - 5.1 mmol/L 11/13/2024 7:23 AM CDT [facility] CHLORIDE 107 98 - 107 mmol/L 11/13/2024 7:23 AM CDT [facility] CO2,TOTAL 20(L) 22 - 29 mmol/L 11/13/2024 7:23 AM CDT [facility] ANION GAP 15 5 - 18 11/13/2024 7:23 AM CDT [facility] GLUCOSE 110(H) 70 - 99 mg/dL 11/13/2024 7:23 AM T [facility] CALCIUM 9.0 8.8 - 10.4 mg/dL 11/13/2024 7:23 AM T [facility] Comment: Reference ranges for this test were updated on 04/05/2024 to reflect our healthy population more accurately. Reference range changes are not retroactively applied to results, but previous results using the same methodology can be interpreted in the context of the new reference range. BUN 14 6 - 20 mg/dL 11/13/2024 7:23 AM T [facility] CREATININE 0.83 0.70 - 1.20 mg/dL 11/13/2024 7:23 AM T [facility] BUN/CREAT RATIO 17 10 - 20 7:23 AM T [facility] eGFR >90 >90 mL/min/1. 73m2 11/13/2024 7:23 AM T [facility] Comment:As of 2021, eG FR is calculated by the CKD-EPI creatinine equation without race adjustment. eGFR can be influenced by muscle mass, exercise, and diet. The reported eGFR is an estimation only and is only applicable if the renal function is stable. Blood BLOOD SPECIMEN / Unknown Venipuncture / Unknown 11/13/2024 5:44 AM CDT 11/13/2024 6:09 AM CDT us Jessica Cross MD CHEMISTRY Final Result [facility] [address] [place] [address], [place] * SCAN-CARDIAC STRIP (11/12/2024 10:04 PM CDT) us Scanner OTHER Final Result * SCAN-CARDIAC STRIP (11/12/2024 5:38 PM CDT) us Scanner OTHER Final Result * ECHO TTE COMPLETE W CONTRAST (11/12/2024 1:37 PM CDT) AORTIC VALVE MEAN PG 4 mmHg EJECTION FRACTION 65 % LVEDD 4.9 cm Anatomical Region Laterality Modality Ultrasound 11/12/2024 1:06 PM CDT Narrative 11/12/2024 3:07 PM CDT ECHOCARDIOGRAM MAGGIE CONTRERAS : 1965 59 years Study Date: 11/12/2024 1:06:14 PM Gender: M BP: 115/75 mmHg Height: 182.00 cm BSA: 2.22 m Weight: 101.00 kg Tech: MAURO Mcmahon MD: TONG PAZ Site: [facility] Reading Location: ANW IP Patient Location: Inpatient. Procedure: 2D w/ Contrast, Color Doppler and Spectral Doppler. Indication for study: Chest pain, tightening, and pressure. Cardiac Rhythm: Regular.Study quality: Good. Final Impressions: 1. Normal left ventricular size, normal wall thickness, normal global systolic function, calculated EF of 65 %. 2. Right ventricular cavity size is normal, global systolic RV function is normal - RV free wall is abnormal. 3. The aortic valve is trileaflet, no stenosis and no regurgitation. 4. The mitral valve is sclerotic, trace mitral regurgitation. 5. Echo contrast was administered to enhance visualization of all left ventricular segments. Comparison There are no prior studies on this patient for comparison purposes. Chamber Sizes and Function Normal left ventricular size, normal wall thickness, normal global systolic function, calculated EF of 65 %. No resting regional wall motion abnormality visualized. Left atrial size is normal. Left atrial pressure is normal. Right ventricular cavity size is normal, global systolic RV function is normal. The right atrium is not well visualized. The pulmonary artery is of normal size and origin. The sinus of Valsalva is normal sized. The ascending aorta is normal sized. Valves, RV Pressures and Diastolic Function The aortic valve is trileaflet, no stenosis and no regurgitation. The mitral valve is sclerotic, trace mitral regurgitation. Normal diastolic function. The tricuspid valve is normal in structure, trace tricuspid regurgitation. The pulmonic valve is normal. Trace pulmonary regurgitation. Masses, Effusion, Shunts There is no pericardial effusion. The inferior vena cava is normal sized, respiratory size variation greater than 50%. No left to right shunting was detected by limited color flow Doppler interrogation of the interatrial septum. MEASUREMENTS AND CALCULATIONS 2-D Measurements and LV Function: LVID (d) 4.9 cm Planimetered EF 65 % LVID (s) 3.2 cm LV FS% (2D) 35 % IVS (d) 1.1 cm LVOT diameter 2.1 cm LVPW (d) 1.3 cm HR 61 bpm Ao Sinus 3.7 cm LA Vol index 33 ml/m2 Ao Sinus ULN 4.1 cm * Asc Ao 4.0 cm Asc Ao ULN 4.1 cm * * Input BSA outside of range, reported values correspond to BSA = 2.1 Diastology: Mitral Tissue Doppler E Peak 0.7 m/s e', Septum 0.07 m/s A Peak 0.9 m/s e', Lateral 0.10 m/s E/A 0.8 E/e' Average 8.26 DT 169 msec Aortic Valve: Vmax 1.4 m/s ROMEL (V) 3.06 cm VTI 0.26 m ROMEL (I) 3.34 cm LVOT V max 1.2 m/s Max PG 8 mmHg LVOT VTI 0.25 m Mean PG 4 mmHg SV 88 ml Dim Index 0.97 SV index 39 ml/m CO 5.3 l/min CI 2.4 l/min/m Mitral Valve: MVA 4.5 cm MV P 1/2 49 msec Tricuspid Valve and estimated PA pressures: TAPSE 2.7 cm Contrast documentation: 2 ml diluted Definity, lot #[id number], [facility]# [id number] was administered peripherally to enhance visualization of all left ventricular segments. . This study was interpreted by an [facility] accredited facility. Final Procedure Note Ck Pompa MD - 11/12/2024 ECHOCARDIOGRAM MAGGIE BLEVINSRED : 1965 59 years Study Date: 11/12/2024 1:06:14 PM Gender: M BP: 115/75 mmHg Height: 182.00 cm BSA: 2.22 m Weight: 101.00 kg Tech: MAURO Mcmahon MD: TONG PAZ Site: [facility] Reading Location: [facility] Patient Location: Inpatient. Procedure: 2D w/ Contrast, Color Doppler and Spectral Doppler. Indication for study: Chest pain, tightening, and pressure. Cardiac Rhythm: Regular.Study quality: Good. Final Impressions: 1. Normal left ventricular size, normal wall thickness, normal globalsystolic function, calculated EF of 65 %. 2. Right ventricular cavity size is normal, global systolic RV functionis normal - RV free wall is abnormal. 3. The aortic valve is trileaflet, no stenosis and no regurgitation. 4. The mitral valve is sclerotic, trace mitral regurgitation. 5. Echo contrast was administered to enhance visualization of all leftventricular segments. Comparison There are no prior studies on this patient for comparison purposes. Chamber Sizes and Function Normal left ventricular size, normal wall thickness, normal globalsystolic function, calculated EF of 65 %. No resting regional wall motionabnormality visualized. Left atrial size is normal. Left atrial pressureis normal. Right ventricular cavity size is normal, global systolic RVfunction is normal. The right atrium is not well visualized. The pulmonaryartery is of normal size and origin. The sinus of Valsalva is normalsized. The ascending aorta is normal sized. Valves, RV Pressures and Diastolic Function The aortic valve is trileaflet, no stenosis and no regurgitation. Themitral valve is sclerotic, trace mitral regurgitation. Normal diastolicfunction. The tricuspid valve is normal in structure, trace tricuspidregurgitation. The pulmonic valve is normal. Trace pulmonaryregurgitation. Masses, Effusion, Shunts There is no pericardial effusion. The inferior vena cava is normal sized,respiratory size variation greater than 50%. No left to right shunting wasdetected by limited color flow Doppler interrogation of the interatrialseptum. MEASUREMENTS AND CALCULATIONS 2-D Measurements and LV Function: LVID (d) 4.9 cm Planimetered EF 65% LVID (s) 3.2 cm LV FS% (2D) 35% IVS (d) 1.1 cm LVOT diameter2.1 cm LVPW (d) 1.3 cm HR 61bpm Ao Sinus 3.7 cm LA Vol index 33ml/m2 Ao Sinus ULN 4.1 cm * Asc Ao 4.0 cm Asc Ao ULN 4.1 cm * * Input BSA outside of range, reported values correspond to BSA = 2.1 Diastology: Mitral Tissue Doppler E Peak 0.7 m/s e', Septum 0.07 m/s A Peak 0.9 m/s e', Lateral 0.10 m/s E/A 0.8 E/e' Average 8.26 DT 169 msec Aortic Valve: Vmax 1.4 m/s ROMEL (V) 3.06 cm VTI 0.26 m ROMEL (I) 3.34 cm LVOT V max 1.2 m/s Max PG 8 mmHg LVOT VTI 0.25 m Mean PG 4 mmHg SV 88 ml Dim Index 0.97 SV index 39 ml/m CO 5.3 l/min CI 2.4 l/min/m Mitral Valve: MVA 4.5 cm MV P 1/2 49 msec Tricuspid Valve and estimated PA pressures: TAPSE 2.7 cm Contrast documentation: 2 ml diluted Definity, lot #[id number], [facility]#[id number] was administered peripherally to enhance visualization of allleft ventricular segments. . This study was interpreted by an IAC accredited facility. Final Tong Paz MD ECHO ORD Final Re sult * EKG - In AM (11/12/2024 8:38 AM CDT) Only the most recent of2 resultswithin the time period is included. Interpretation Sinus bradycardia T wave abnormality, consider lateral ischemia Abnormal ECG When compared with ECG of 11-Nov-2024 19:52, (Unconfirmed) No significant change was found BEYOND NOW Ventricular Rate 53 BPM BEYOND NOW Atrial Rate 53 BPM BEYOND NOW P-R Interval 186 ms BEYOND NOW QRS Duration 100 ms BEYOND NOW QT 466 ms BEYOND NOW QTc 437 ms BEYOND NOW P [place] 40 degrees BEYOND NOW R [place] 45 degrees BEYOND NOW T [place] 96 degrees BEYOND NOW 11/12/2024 8:38 AM CDT 11/12/2024 5:24 PM CDT us Natividad Zapata [employer] EKG ORD Final Result BEYOND NOW [place], [place] * (ABNORMAL) TROPONIN T (HS) ONE TIME (11/11/2024 9:52 PM CDT) TROPONIN T HS 1,566(H) 6-15 ng/L ng/L 11/11/2024 10:35 PM CDT [facility] Blood BLOOD SPECIMEN / Unknown Capillary / Unknown 11/11/2024 9:52 PM CDT 11/11/2024 10:03 PM CDT Tong Paz MD CHEMISTRY Final Re sult [facility] [address] [place] [address], [place] * SCAN-CARDIAC STRIP (11/11/2024 8:30 PM CDT) Scanner OTHER Final Result * (ABNORMAL) TROPONIN T (HS) ACUTE W/2HR REFLEX (11/11/2024 7:34 PM CDT) TROPONIN T HS 2,056(H) 6-15 ng/L ng/L 11/11/2024 8:22 PM CDT [facility] Blood BLOOD SPECIMEN / Unknown Venipuncture / Unknown 11/11/2024 7:34 PM CDT 11/11/2024 7:59 PM CDT Narrative [facility] 11/11/2024 8:22 PM CDT hs-cTnT (Elecsys Troponin T Gen 5) concentration (s) above the sex-specific 99th percentile (16 ng/L or greater for males or 11 ng/L or greater for females) are indicative of myocardial injury. If initial hs-cTnT <=100 ng/L at presentation, a 0h/2h ABSOLUTE (ng/L) delta change (rising or falling) of >=10 ng/L suggests a significant change, whereas a 0h/2h delta change <=3 ng/L suggests no significant change. If initial hs-cTnT >100 ng/L at presentation, a 0h/2h/ RELATIVE (percent, %) delta change of 20% is suggested to distinguish patients with acute vs. chronic myocardial injury. There are multiple etiologies that can cause hs-cTnT increases above the 99th percentile (myocardial injury) other than acute myocardial infarction. Clinical context and careful clinical evaluation are critical for diagnosis and risk-stratification. The diagnosis of acute myocardial infarction requires a rising and/or falling pattern in hs-cTnT concentrations with at least one value above the sex-specific 99th percentile PLUS at least one of the following clinical criteria: ischemic symptoms, new or presumed new significant ST-T wave changes or new LBBB, development of pathological Q waves, imaging evidence of new loss of viable myocardium or new regional wall motion abnormality, or identification of intracoronary atherothrombosis or an acute angiographic culprit on coronary angiography. In appropriate low-risk patients with a non-ischemic electrocardiogram without active chest pain with a symptom onset >3-hours without recurrence, a single initial hs-cTnT<6 ng/L identifies patient with a very low risk in emergency department patient population. us Tong Paz MD CHEMISTRY Final Re sult [facility] [address] [place] [address], * HEMOGLOBIN A1C (11/11/2024 7:34 PM CDT) HEMOGLOBIN A1C SCREENING 5.3 <=6.4 % 11/11/2024 9:31 PM CDT [facility] Blood BLOOD SPECIMEN / Unknown Venipuncture / Unknown 11/11/2024 7:34 PM CDT 11/11/2024 7:[address] [facility] - 11/11/2024 9:31 PM CDT (<5.7%) Normal (5.7% to 6.4%) Indicates prediabetes (>=6.5%) Confirms diabetes Falsely low levels may be seen with: Recent Transfusion, Recent Significant Blood Loss, Hemolytic Diseases, or Falsely elevated levels may be seen with: Untreated Anemias, Splenectomy us Natividad Zapata NP CHEMISTRY Final Result Performing Organization Address [facility]/ZIP Co de Phone Number [facility] [address] [place] [address], * (ABNORMAL) PROTIME-INR (11/11/2024 7:34 PM CDT) INR 1.2 <1.3 11/11/2024 8:08 PM CDT [facility] PROTIME 13.5(H) 10.6 - 12.4 sec 11/11/2024 8:08 PM CDT [facility] Blood BLOOD SPECIMEN / Unknown Venipuncture / Unknown 11/11/2024 7:34 PM CDT 11/11/2024 7:59 PM CDT [facility] - 11/11/2024 8:08 PM CDT Therapeutic Range 2.0-3.0 for most anticoagulated patients 2.5-3.5 or 4.0 for high risk patients The INR is only used for patients on stable oral anticoagulant therapy. It makes no significant contribution to the diagnosis or treatment of patients whose Protime is prolonged for other reasons. INR results are increased when heparin levels exceed 1.0 U/mL, which corresponds to an aPTT >125 seconds if the patient is on UFH. us Tong Paz MD HEMATOLOGY Final Re sult Performing Organization Address [facility] Co de Phone Number [facility] [address] [place] [address], * LIPID PANEL (11/11/2024 7:34 PM CDT) CHOLESTEROL,TOTAL 142 100 - 199 mg/dL 11/11/2024 8:22 PM CDT [facility] Comment: Cholesterol, Total Reference Ranges Desirable <200 mg/dL Borderline 200-239 mg/dL High >=240 mg/dL TRIGLYCERIDES 79 <150 mg/dL 11/11/2024 8:22 PM CDT [facility] HDL CHOLESTEROL 61 >40 mg/dL 8:22 PM CDT [facility] NON-HDL CHOLESTEROL 81 <145 mg/dl 11/11/2024 8:22 PM CDT [facility] CHOL/HDL RATIO 2.33 <4.50 11/11/2024 8:22 PM CDT [facility] LDL CHOLESTEROL 65 <=130 mg/dL 11/11/2024 8:22 PM CDT [facility] VLDL CHOLESTEROL 16 <=30 mg/dL 11/12/19 8:22 PM CDT [facility] Blood BLOOD SPECIMEN / Unknown Venipuncture / Unknown 11/11/2024 7:34 PM CDT 11/11/2024 7:59 PM CDT us Natividad Zapata [employer] CHEMISTRY Final Result [facility] [address] [place] [id number], [place] * SCAN-CARDIAC STRIP (11/11/2024 4:29 PM CDT) us Scanner OTHER Final Result * SCAN-COLONOSCOPY (08/02/2024 12:00 AM WOOD GRINDER) us Scanner OTHER Final Result * ANTI HCV [[id number]] (11/11/2013 1:37 PM CDT) HEPATITIS C ANTIBODY Non-Reacti ve Non-Reacti ve 11/11/2013 7:52 PM CDT [facility] Blood specimen (specimen) BLOOD SPECIMEN / Unknown Venipuncture / Unknown 11/11/2013 1:37 PM CDT 11/11/2013 1:37 PM CDT Narrative [facility] - 11/11/2013 7:52 PM CDT Antibodies to HCV not detected; does not exclude the possibility of exposure to HCV. us Osman Ponce MD SEND OUTS Final Res ult [facility] [address] [place] [address], [place] from Last 3 Months or Most Recently Relevant to Health Maintenance Insurance [facility] Advance Directives * Full Code (Latest Code Status on File) Date Activated Date Inactivated Comments 11/11/2024 4:56 PM 11/14/2024 3:52 PM Question Answer Comments Code Status Discussion: Reviewed Preferences * Full Code Date Activated Date Inactivated Comments 08/21/2014 6:03 AM 08/22/2014 12:17 PM * Full Code Date Activated Date Inactivated Comments 07/18/2014 7:25 AM 07/18/2014 12:36 PM * Full Code Date Activated Date Inactivated Comments 06/26/2010 2:49 PM 06/27/2010 5:03 PM Care Teams [employer] Engine [employer] Analyst Relationship Specialty Start Date End Date Osman Ponce MD PCP - General 08/10/08 Codey Carpio MD Consulting Physician Cardiovascular Disease 12/08/13 Mj Cook MD [address] [place] [address] Cardiology - EP Cardiovascular Disease 08/09/14 John Cedillo [address] [address] Dermatology Dermatology 03/29/19 Alessia Gallegos NP [address] [facility] [address] [place] [address] Nurse Practitioner Cardiology - Electrophysiology 04/23/20
== END 2024-11-11 14:26 | disposition home or self-care (01) ==
LOC: AMB 11-17 12:42
PROVIDERS: PCP Family Medicine; Visit Provider Internal Medicine
DX: I21.4 Non-ST elevation (NSTEMI) myocardial infarction (principal)
CPT/HCPCS: A0425; A0434